=== PATIENT | female | born 1955 | race Caucasian/White ===

== ENCOUNTER 2016-06-13 09:14 | Day surgery (SDC) | payer BC ==
[~2016-06-13 09:14] MED LIST: PROPOFOL 500 MG/50 ML EMU IV ONE
[2016-06-13 09:44] VITALS: TEMP 97.2
[2016-06-13 11:13] VITALS: RESP 18
[2016-06-13 11:21] VITALS: BP 141/88; PULSE 83; O2SAT 93
== END 2016-06-13 11:31 | disposition home or self-care (01) ==
LOC: SURG 09:14
PROVIDERS: ATTEND Internal Medicine Gastroenterology
DX: R10.9 Unspecified abdominal pain (principal); K57.30 Diverticulosis of large intestine without perforation or abscess without bleeding; K64.8 Other hemorrhoids; K63.89 Other specified diseases of intestine; D12.0 Benign neoplasm of cecum
CPT/HCPCS: 99001; J2704